=== PATIENT | male | born 1950 | race Hispanic/Latino ===

== ENCOUNTER → 2022-06-26 | Outpatient (CLI) | payer OTHER, MEDICARE ==
[~2022-06-26] MED LIST: ALEN70TA80 PO; ATOR40TA71 PO; ENAL5TAB17 PO; ESOM40VI2 IV; LORA1TAB3 PO; MELO-106 PO; METF-444 PO; METO-408 PO; MONT-39 PO; TAMS0.4C32 PO
== END | disposition home or self-care (01) ==
LOC: SHCH 14:36
PROVIDERS: ATTEND Internal Medicine Cardiovascular Disease
DX: I08.0 Rheumatic disorders of both mitral and aortic valves (principal); I11.9 Hypertensive heart disease without heart failure; I71.4 Abdominal aortic aneurysm, without rupture; E11.9 Type 2 diabetes mellitus without complications; J44.9 Chronic obstructive pulmonary disease, unspecified; G47.30 Sleep apnea, unspecified
CPT/HCPCS: 93306

== ENCOUNTER → 2022-10-23 | Outpatient (CLI) | payer OTHER, MEDICARE ==
[~2022-10-23] MED LIST changes: +DiphenhydrAMINE HCL 50 MG/ML VIAL ONE; +IOHEXOL 350 MG/ML 100ML INFUS..BTL IV ONE; +SOLU-MEDROL 125MG VIAL ONE
== END | disposition home or self-care (01) ==
LOC: RAH 08:11
PROVIDERS: ATTEND Internal Medicine Cardiovascular Disease
DX: R09.89 Other specified symptoms and signs involving the circulatory and respiratory systems (principal)
CPT/HCPCS: 70498; J1200; J2930; Q9967

== ENCOUNTER → 2023-02-25 | Outpatient (CLI) | payer OTHER, MEDICARE ==
[~2023-02-25] MED LIST changes: -DiphenhydrAMINE HCL 50 MG/ML VIAL ONE; +ENAL-87 PO; -ENAL5TAB17 PO; -IOHEXOL 350 MG/ML 100ML INFUS..BTL IV ONE; -SOLU-MEDROL 125MG VIAL ONE
[2023-02-25 16:35] LABS: CREATININE 0.9 mg/dL (0.5-1.5); TOTAL PROTEIN, SERUM 7.7 g/dL (6.0-8.3)
== END | disposition home or self-care (01) ==
LOC: LAB 14:27
PROVIDERS: ATTEND Internal Medicine Cardiovascular Disease
DX: I71.40 Abdominal aortic aneurysm, without rupture, unspecified (principal)
CPT/HCPCS: 36415; 80053

== ENCOUNTER → 2023-03-05 | Outpatient (CLI) | payer OTHER, MEDICARE ==
[~2023-03-05] MED LIST changes: +DiphenhydrAMINE HCL 50 MG/ML VIAL ONE; +IOHEXOL 350 MG/ML 100ML INFUS..BTL IV ONE; +SOLU-MEDROL 125MG VIAL ONE
== END | disposition home or self-care (01) ==
LOC: RAH 08:06
PROVIDERS: ATTEND Internal Medicine Cardiovascular Disease
DX: I71.43 Infrarenal abdominal aortic aneurysm, without rupture (principal); I71.9 Aortic aneurysm of unspecified site, without rupture
CPT/HCPCS: 74174; J1200; J2930; Q9967

== ENCOUNTER → 2023-03-20 | Outpatient (CLI) | payer OTHER, MEDICARE ==
[~2023-03-20] MED LIST changes: +ASPI-1197 PO; +CALC-910 PO; +CHOL200074 PO; +DOXA8TAB81 PO; -DiphenhydrAMINE HCL 50 MG/ML VIAL ONE; +FAMO20TA8 PO; +FINA5TAB41 PO; +GABA300C PO; -IOHEXOL 350 MG/ML 100ML INFUS..BTL IV ONE; +ISOS20TA9 PO; +LINA145C PO; +METO-391 PO; +REGADENOSON 0.4 MG/5 ML PF SYG IVP ONE; +ROFL250T3 PO; -SOLU-MEDROL 125MG VIAL ONE
== END | disposition home or self-care (01) ==
LOC: SHCH 08:42
PROVIDERS: ATTEND Internal Medicine Cardiovascular Disease
DX: R94.39 Abnormal result of other cardiovascular function study (principal); R06.02 Shortness of breath
CPT/HCPCS: 78452; 93017; J2785; A9500 ×2; 96374

== ENCOUNTER 2023-04-29 06:39 | Day surgery (SDC) | payer OTHER, MEDICARE ==
[2023-04-27 12:27] LABS: BASOPHILS % (AUTO) 0.6 % (0.0-5.0); EOSINOPHILS % (AUTO) 1.9 % (0.0-8.0); HEMATOCRIT 44.5 % (42-54); LYMPHOCYTES % (AUTO) 18.7 % (21.0-51.0); MEAN CORPUSCULAR HEMOGLOBIN 27.5 pg (27.0-33.0); MEAN CORPUSCULAR HGB CONC 31.7 g/dL (32.0-36.0); MEAN CORPUSCULAR VOLUME 86.9 fL (79-99); MONOCYTES % (AUTO) 7.1 % (3.0-13.0); NEUTROPHILS % (AUTO) 71.3 % (40.0-77.0); PLATELET COUNT (AUTO) 223 K/uL (130-400); RED BLOOD CELL COUNT(AUTO) 5.12 MIL/uL (4.50-6.20); RED CELL DISTRIBUTION WIDTH 14.6 % (11.0-15.5)
[2023-04-27 12:43] VITALS: BP 152/71
[2023-04-27 12:44] LABS: CREATININE 0.9 mg/dL (0.5-1.5); POTASSIUM 4.3 mmol/L (3.5-5.1)
[2023-04-27 13:17] LABS: PROTHROMBIN TIME 10.9 SEC (9.6-11.6)
[2023-04-27 13:19] LABS: PARTIAL THROMBOPLASTIN TIME 27.9 SEC (26.3-35.5)
[~2023-04-29] VITALS: Ht 152.4 cm; Wt 87.8 kg
[2023-04-29] VITALS (10 sets, daily range): BP systolic 114–151; BP diastolic 64–82
[~2023-04-29 06:39] MED LIST changes: -ALEN70TA80 PO; -ENAL-87 PO; -ESOM40VI2 IV; -LORA1TAB3 PO; -MELO-106 PO; -METO-408 PO; -REGADENOSON 0.4 MG/5 ML PF SYG IVP ONE; -TAMS0.4C32 PO
[2023-04-29] MEDS ORDERED: 0.9%NACL 1000ML 1,000 ML IV ONE (07:06)
[2023-04-29] MEDS ORDERED: DiphenhydrAMINE HCL 50 MG/ML VIAL ONE (07:06)
[2023-04-29] MEDS ORDERED: SOLU-MEDROL 125MG VIAL ONE (07:07)
[2023-04-29] MEDS ORDERED: LIDOCAINE HCL 400MG/20ML VIAL ONE (07:24)
[2023-04-29] MEDS ORDERED: FENTANYL CITRATE PF 50 MCG/1 ML 2ML VIAL ONE (07:25)
[2023-04-29] MEDS ORDERED: HEPARIN 10,000 UNIT/10ML (1,000 UNIT/ML) VIAL ONE (07:27)
[2023-04-29] MEDS ORDERED: MIDAZOLAM HCL 1 MG/ML 2ML VIAL ONE (07:27)
[2023-04-29] MEDS ORDERED: IOHEXOL-350 75 ML VIAL IV ONE ×2 (07:27→09:06)
[2023-04-29] MEDS ORDERED: NICARDIPINE 25MG INJ IV ONE (07:27)
[2023-04-29] MEDS ORDERED: NITROGLYCERIN 50MG VIAL ONE (07:27)
[2023-04-29] MEDS ORDERED: CLOPIDOGREL 300MG TAB ONE (08:55)
[2023-04-29] MEDS ORDERED: ASPIRIN 325MG EC TAB PO ONE (08:55)
[2023-04-29] MEDS ORDERED: 0.9%NACL 1000ML 1,000 ML IV SCH (10:00)
[2023-04-29] MEDS ORDERED: DEXTROSE 50%-WATER 50 ML DISP.SYRIN IV PRN (10:00)
[2023-04-29] MEDS ORDERED: GLUCAGON 1MG KIT 1 MG ML IM PRN (10:00)
== END 2023-04-29 14:45 | disposition home or self-care (01) ==
LOC: DAH 06:39
PROVIDERS: ATTEND Internal Medicine Cardiovascular Disease
DX: I25.119 Atherosclerotic heart disease of native coronary artery with unspecified angina pectoris (principal); I45.10 Unspecified right bundle-branch block; I71.40 Abdominal aortic aneurysm, without rupture, unspecified; E11.22 Type 2 diabetes mellitus with diabetic chronic kidney disease; I12.9 Hypertensive chronic kidney disease with stage 1 through stage 4 chronic kidney disease, or unspecified chronic kidney disease; N18.9 Chronic kidney disease, unspecified; G47.33 Obstructive sleep apnea (adult) (pediatric); J43.9 Emphysema, unspecified; R94.31 Abnormal electrocardiogram [ECG] [EKG]; E78.5 Hyperlipidemia, unspecified; Z79.01 Long term (current) use of anticoagulants; Z79.899 Other long term (current) drug therapy; Z86.16 Personal history of COVID-19; Z79.82 Long term (current) use of aspirin; Z79.84 Long term (current) use of oral hypoglycemic drugs; Z88.0 Allergy status to penicillin; Z88.3 Allergy status to other anti-infective agents; Z98.890 Other specified postprocedural states
CPT/HCPCS: 80048; 85025; 85610; 85730; 36415; 71045; 93005; 93571; 82948 ×2; 93458; C9600; C1769 ×2; C1887 ×2; C1894 ×3; A4649; C1874; C1725 ×2; J1200; J3010; J3490 ×3; J7030; J2930; J1644 ×3; J2250; Q9967 ×2; A4215; A4222; A4221; A4663; A4216; A4606; A4223 ×3; 96360; 96361; 99156; 99157

== ENCOUNTER → 2024-02-18 | Outpatient (CLI) | payer OTHER, MEDICARE ==
[2024-02-18 12:20] LABS: POTASSIUM 4.4 mmol/L (3.5-5.1)
== END | disposition home or self-care (01) ==
LOC: LAB 10:04
PROVIDERS: ATTEND Internal Medicine Cardiovascular Disease
DX: I10 Essential (primary) hypertension (principal); E78.5 Hyperlipidemia, unspecified
CPT/HCPCS: 36415; 80048

== ENCOUNTER → 2024-02-22 | Outpatient (CLI) | payer OTHER, MEDICARE ==
[~2024-02-22] MED LIST changes: +IOHEXOL 350 MG/ML 100ML INFUS..BTL IV ONE; +IOHEXOL-350 50ML VIAL IV ONE
== END | disposition home or self-care (01) ==
LOC: RAH 09:30
PROVIDERS: ATTEND Internal Medicine Cardiovascular Disease
DX: I25.10 Atherosclerotic heart disease of native coronary artery without angina pectoris (principal); I65.23 Occlusion and stenosis of bilateral carotid arteries; K57.90 Diverticulosis of intestine, part unspecified, without perforation or abscess without bleeding; N20.0 Calculus of kidney; I77.1 Stricture of artery; I71.43 Infrarenal abdominal aortic aneurysm, without rupture; J98.11 Atelectasis; M47.812 Spondylosis without myelopathy or radiculopathy, cervical region
CPT/HCPCS: 74174; 70498; Q9967 ×3

== ENCOUNTER → 2024-09-30 | Outpatient (CLI) | payer OTHER, MEDICARE ==
[~2024-09-30] MED LIST changes: -IOHEXOL 350 MG/ML 100ML INFUS..BTL IV ONE; -IOHEXOL-350 50ML VIAL IV ONE
== END | disposition home or self-care (01) ==
LOC: SHCH 14:05
PROVIDERS: ATTEND Internal Medicine Cardiovascular Disease
DX: Z01.810 Encounter for preprocedural cardiovascular examination (principal); I25.10 Atherosclerotic heart disease of native coronary artery without angina pectoris
CPT/HCPCS: 93306

== ENCOUNTER → 2025-04-18 | Outpatient (CLI) | payer OTHER, MEDICAID ==
--- NOTE | 2025-04-18 09:40 | HMCIMG ---
Abdominal Aorta Ultrasound with Color Doppler waveform analysis Clinical Information: AAA Comparison: None Findings: There is a distal infrarenal abdominal aortic aneurysm, with maximum diameter of 4.4 cm anteroposterior by 4.3 cm transverse with a length of 4.5 cm. There is no occlusion. No occlusive plaque formation is identified. There is no dissection. There is no rupture. Cord Doppler waveform analysis demonstrates patent aorta and main branches without significant velocity abnormalities. Impression: Infrarenal abdominal aortic aneurysm.
== END | disposition home or self-care (01) ==
LOC: RAH 07:07
PROVIDERS: ATTEND Internal Medicine Cardiovascular Disease
DX: I71.43 Infrarenal abdominal aortic aneurysm, without rupture (principal); I71.40 Abdominal aortic aneurysm, without rupture, unspecified
CPT/HCPCS: 76775